=== PATIENT | female | born 1950 | race Asian ===

== ENCOUNTER 2018-06-17 08:48 | Day surgery (SDC) | payer MEDICARE, OTHER ==
[~2018-06-17] VITALS: Ht 144.8 cm; Wt 56.8 kg
[~2018-06-17 08:48] MED LIST: CARV25 PO; CLON-570 PO; FOLI0.8T22 PO; FOLI1 PO; LOSA50TA37 PO; PANT40TA25 PO; SEVEC800 PO; SODIUM CHLORIDE 0.9% 500 ML IV ONE; TETRACAINE HCL/PF 0.5% 4 ML OPHTHALMIC SOLUTION OS ONE
[2018-06-17] MEDS ORDERED: HYALURONATE SODIUM 12 MG/ML 0.8 ML SYRINGE IO ONE (08:49)
[2018-06-17] MEDS ORDERED: HYALURONATE SOD/CHONDROITIN SOD 0.5 ML VIAL IO ONE (08:49)
[2018-06-17] MEDS ORDERED: EPINEPHrine 1:1,000 [1 MG/ML] AMP IM ONE (08:49)
[2018-06-17] MEDS ORDERED: LIDOCAINE HCL/PF 1% 2 ML VIAL INJ ONE (08:49)
[2018-06-17] MEDS ORDERED: POVIDONE-IODINE 10% 15 ML SOLUTION UD TP ONE (08:49)
[2018-06-17] MEDS ORDERED: RINGERS SOLUTION,LACTATED 0 ML IV ONE (08:56)
[2018-06-17] MEDS ORDERED: FLURBIPROFEN SODIUM 0.03% 2.5 ML OPHTHALMIC SOLUTION ONE (08:57)
[2018-06-17] MEDS ORDERED: CYCLOPENTOLATE HCL 1% 2 ML OPHTHALMIC SOLUTION ONE (08:57)
[2018-06-17] MEDS ORDERED: TROPICAMIDE 1% 2 ML OPHTHALMIC SOLUTION ONE (08:57)
[2018-06-17] MEDS ORDERED: PHENYLEPHRINE HCL 2.5% 2 ML OPHTHALMIC SOLUTION ONE (08:57)
[2018-06-17] MEDS ORDERED: TETRACAINE HCL/PF 0.5% 4 ML OPHTHALMIC SOLUTION ONE (08:58)
[2018-06-17] MEDS ORDERED: OFLOXACIN 0.3% 5 ML OPHTHALMIC SOLUTION ONE (08:58)
[2018-06-17] MEDS ORDERED: SODIUM CHLORIDE 0.9% 500 ML IV ONE (09:21)
[2018-06-17] MEDS: FLURBIPROFEN SODIUM 0.03% 2.5 ML OPHTHALMIC SOLUTION OS SCH ×3 (09:49→10:01)
[2018-06-17] MEDS: TROPICAMIDE 1% 2 ML OPHTHALMIC SOLUTION OS SCH ×3 (09:49→10:01)
[2018-06-17] MEDS: PHENYLEPHRINE HCL 2.5% 2 ML OPHTHALMIC SOLUTION OS SCH ×3 (09:49→10:01)
[2018-06-17] MEDS: OFLOXACIN 0.3% 5 ML OPHTHALMIC SOLUTION OS SCH ×3 (09:50→10:01)
[2018-06-17] MEDS: CYCLOPENTOLATE HCL 1% 2 ML OPHTHALMIC SOLUTION OS SCH ×3 (09:50→10:01)
== END 2018-06-17 12:40 | disposition home or self-care (01) ==
LOC: SURGERY 08:48
PROVIDERS: ATTEND Ophthalmology
DX: H25.12 Age-related nuclear cataract, left eye (principal); I12.0 Hypertensive chronic kidney disease with stage 5 chronic kidney disease or end stage renal disease; N18.6 End stage renal disease; Z98.51 Tubal ligation status; Z98.41 Cataract extraction status, right eye; Z98.890 Other specified postprocedural states; Z79.899 Other long term (current) drug therapy
CPT/HCPCS: 66984; 93005; C1780; J0171; J3490 ×2; J7040; J7120